=== PATIENT | male | born 1945 | race Caucasian/White ===

== ENCOUNTER 2025-05-31 10:15 | Outpatient (RCR) | payer MEDICARE, OTHER, SELFPAY | END 2025-05-31 12:15 | LOC: PUL 10:15 | PROVIDERS: Referring Provider Student in an Organized Health Care Education/Training Program; Visit Provider Student in an Organized Health Care Education/Training Program | DX: J43.2 Centrilobular emphysema (principal) | CPT/HCPCS: 94626 ==